=== PATIENT | female | born 1935 | race Caucasian/White ===

== ENCOUNTER 2019-10-15 13:54 | Emergency (ER) | payer MEDICARE, OTHER ==
[~2019-10-15] VITALS: Ht 160 cm; Wt 86.2 kg
--- NOTE | 2019-10-15 14:43 | NUR ---
DR CARRERA AT BEDSIDE FOR EVAL.
--- NOTE | 2019-10-15 14:43 | NUR ---
HOME NUMBER,[phone] CALLED HOPING TO GET A HOLD OF CAREGIVER FOR MORE INFO,MESSAGE LEFT
[2019-10-15 15:00] LABS: BASOPHILS % (AUTO) 0.3 % (0.0-2.0); EOSINOPHILS % (AUTO) 0.5 % (0.0-6.0); HEMATOCRIT 42 % (33-45); HEMOGLOBIN 13.9 g/dL (11.5-14.8); LYMPHOCYTES # (AUTO) 0.9 /CMM (0.8-4.8); LYMPHOCYTES % (AUTO) 7.9 % (20.0-44.0); MEAN CORPUSCULAR HGB CONC 33 g/dl (31.0-36.0); MEAN CORPUSCULAR VOLUME 95 fL (82-100); MONOCYTES # (AUTO) 0.8 /CMM (0.1-1.30); MONOCYTES % (AUTO) 7.4 % (2.0-12.0); NEUTROPHILS # (AUTO) 9.2 /CMM (1.8-8.9); NEUTROPHILS % (AUTO) 83.9 % (43.0-81.0); PLATELET COUNT (AUTO) 231 /CMM (150-450); RED BLOOD CELL COUNT(AUTO) 4.44 MIL/uL (4.0-5.2)
[2019-10-15 15:13] LABS: ALANINE AMINOTRANSFERASE 14 U/L (12-78); ALBUMIN 3.7 g/dL (3.4-5.0); ALKALINE PHOSPHATASE 56 U/L (46-116); ASPARTATE AMINOTRANSFERASE 18 U/L (15-37); BILIRUBIN,DIRECT 0.1 mg/dL (0.0-0.2); BILIRUBIN,TOTAL 0.4 mg/dL (0.2-1.0); CARBON DIOXIDE 27 mmol/L (21-32); CHLORIDE 106 mmol/L (98-107); CREATININE 0.8 mg/dL (0.6-1.3); GLUCOSE 108 mg/dL (74-106); LIPASE 186 U/L (73-393); POTASSIUM 4.2 mmol/L (3.5-5.1); SODIUM SERUM 141 mmol/L (136-145); TOTAL PROTEIN, SERUM 6.9 g/dL (6.4-8.2); UREA NITROGEN, BLOOD 24 mg/dL (7-18)
[2019-10-15] MEDS ORDERED: IV NS 0.9% 250 ML IV ONE (15:15)
[2019-10-15] MEDS ORDERED: CT SWABBABLE VALVE TRANS SET 1 EA INFUS.SET MC ONE (15:15)
[2019-10-15] MEDS ORDERED: IOHEXOL-300 100 ML VIAL IV ONE (15:15)
--- NOTE | 2019-10-15 15:21 | NUR ---
PT TO RADIOLOGY FOR HEAD AND ABDOMINAL CT SCAN VIA [facility].
[2019-10-15] MEDS ORDERED: DOCU250C14 PO (16:12)
[2019-10-15] MEDS ORDERED: ROSU10TA2 PO (16:12)
[2019-10-15] MEDS ORDERED: DONE10TA44 PO (16:12)
[2019-10-15] MEDS ORDERED: VITA400C19 PO (16:12)
[2019-10-15] MEDS ORDERED: ASPI-1169 PO (16:12)
[2019-10-15] MEDS ORDERED: OMEG-167 PO (16:12)
[2019-10-15] MEDS ORDERED: LOSA50TA39 PO (16:12)
[2019-10-15] MEDS ORDERED: NAPR220C15 PO (16:12)
[2019-10-15] MEDS ORDERED: ESCI10TA PO (16:12)
[2019-10-15] MEDS ORDERED: ASCO-352 PO (16:12)
--- NOTE | 2019-10-15 17:36 | NUR ---
Patient discharged to home in stable condition. Written and verbal after care instructions given. Patient verbalizes understanding of instruction.IV removed. Catheter intact and site benign. Pressure and 4x4 applied to site. No bleeding noted.
[2019-10-15 17:37] VITALS: BP 112/69
== END 2019-10-15 17:37 | disposition home or self-care (01) ==
LOC: ER 13:58
DX: R11.2 Nausea with vomiting, unspecified (principal); R42 Dizziness and giddiness; I10 Essential (primary) hypertension; M19.90 Unspecified osteoarthritis, unspecified site; Z79.899 Other long term (current) drug therapy; Z79.82 Long term (current) use of aspirin
CPT/HCPCS: 36415; 70450; 71045; 74177; 80048; 80076; 83690; 84484; 85025; 85730; 93005; 99285; J7050; Q9967

== ENCOUNTER 2019-10-18 14:58 | Emergency (ER) | payer OTHER ==
[~2019-10-18] VITALS: Ht 160 cm; Wt 86.6 kg
[~2019-10-18 14:58] MED LIST: ASCO-352 PO; ASPI-1169 PO; DOCU250C14 PO; DONE10TA44 PO; ESCI10TA PO; LOSA50TA39 PO; NAPR220C15 PO; OMEG-167 PO; ROSU10TA2 PO; VITA400C19 PO
--- NOTE | 2019-10-18 15:00 | NUR ---
PT BIBRA FROM HOME C/O GEN WEAKNESS FOR 3 DAYS, PT IS AAOX3, NOT IN RESPIRATORY DISTRESS, HOOKED TO MONITOR, KEPT RESTED AND COMFORTABLE, WILL CONTINUE TO MONITOR.
--- NOTE | 2019-10-18 15:05 | NUR ---
SEEN AND EXAMINED BY .
[2019-10-18] MEDS ORDERED: MULT1TAB73 PO (15:06)
[2019-10-18] MEDS ORDERED: DOCU250C88 PO (15:06)
--- NOTE | 2019-10-18 15:15 | NUR ---
ER PHLEB AT BEDSIDE FOR BLOOD DRAW.
[2019-10-18 15:17] LABS: BASOPHILS # (AUTO) 0.1 /CMM (0.0-0.2); BASOPHILS % (AUTO) 0.7 % (0.0-2.0); EOSINOPHILS % (AUTO) 1.7 % (0.0-6.0); HEMATOCRIT 41 % (33-45); LYMPHOCYTES # (AUTO) 2.9 /CMM (0.8-4.8); MEAN CORPUSCULAR HGB CONC 34 g/dl (31.0-36.0); MEAN CORPUSCULAR VOLUME 94 fL (82-100); NEUTROPHILS # (AUTO) 5.8 /CMM (1.8-8.9); NEUTROPHILS % (AUTO) 58.6 % (43.0-81.0); PLATELET COUNT (AUTO) 256 /CMM (150-450); WHITE BLOOD COUNT (AUTO) 9.9 K/uL (4.3-11.0)
[2019-10-18] MEDS ORDERED: ONDANSETRON HCL/PF 4 MG/2 ML VIAL ONE (15:27)
[2019-10-18] MEDS ORDERED: ONDANSETRON HCL/PF 4 MG/2 ML VIAL IVP ONE (15:30)
[2019-10-18 15:44] LABS: CALCIUM, SERUM 9.2 mg/dL (8.5-10.1); CARBON DIOXIDE 24 mmol/L (21-32); CHLORIDE 103 mmol/L (98-107); GLUCOSE 126 mg/dL (74-106); SODIUM SERUM 138 mmol/L (136-145); UREA NITROGEN, BLOOD 24 mg/dL (7-18)
[2019-10-18 15:45] LABS: APPEARANCE,URINE Slightly Cloudy (CLEAR); BILIRUBIN,URINE Negative (NEGATIVE); BLOOD, URINE Negative Ery/uL (NEGATIVE); COLOR,URINE Light yellow (YELLOW); KETONES,URINE Negative (NEGATIVE); LEUKOCYTE ESTERASE ,URINE Moderate (NEGATIVE); NITRITE, URINE Positive (NEGATIVE); PROTEIN,URINE Negative (NEGATIVE); UGLUCOSE Negative (NEGATIVE); UROBILINOGEN,URINE 0.2 EU/dL (0.2)
--- NOTE | 2019-10-18 15:45 | NUR ---
URINE COLLECTED AND SENT TO LAB.
[2019-10-18 15:51] LABS: ALANINE AMINOTRANSFERASE 17 U/L (12-78); ALBUMIN 3.8 g/dL (3.4-5.0); ALKALINE PHOSPHATASE 57 U/L (46-116); ASPARTATE AMINOTRANSFERASE 22 U/L (15-37); BILIRUBIN,DIRECT 0.1 mg/dL (0.0-0.2); BILIRUBIN,TOTAL 0.5 mg/dL (0.2-1.0); LIPASE 192 U/L (73-393); TOTAL PROTEIN, SERUM 7.2 g/dL (6.4-8.2)
[2019-10-18 16:11] LABS: BACTERIA,URINE Many /HPF (None Seen); RBC,URINE 0-2 /HPF (0-2); SQUAMOUS EPITHELIAL CELL,UR Few /HPF (None Seen)
[2019-10-18 16:12] LABS: MUCUS,URINE Few /LPF (None Seen)
[2019-10-18] MEDS ORDERED: CEFTRIAXONE 1GM BAG (ER ONLY) 50 ML IV ONE (16:56)
[2019-10-18] MEDS ORDERED: CEFTRIAXONE 1 G in IV D5W 50 ML IV ONE (17:00)
[2019-10-18] MEDS ORDERED: IV NS 0.9% 500 ML BAG IV ONE (17:00)
--- NOTE | 2019-10-18 17:06 | NUR ---
SPOKED TO PT RELATIVE SLOAN TO PICK HER UP, ETA 15MINS.
[2019-10-18 17:52] VITALS: BP 141/65
--- NOTE | 2019-10-18 17:52 | NUR ---
IV removed. Catheter intact and site benign. Pressure and 4x4 applied to site. No bleeding noted. Patient discharged to home in stable condition. Written and verbal after care instructions given. Patient verbalizes understanding of instruction.
== END 2019-10-18 17:52 | disposition home or self-care (01) ==
LOC: ER 15:07
DX: N30.00 Acute cystitis without hematuria (principal); E86.0 Dehydration; R00.1 Bradycardia, unspecified; I10 Essential (primary) hypertension; E78.5 Hyperlipidemia, unspecified; F03.90 Unspecified dementia, unspecified severity, without behavioral disturbance, psychotic disturbance, mood disturbance, and anxiety; Z79.82 Long term (current) use of aspirin; Z79.899 Other long term (current) drug therapy
CPT/HCPCS: 36415; 80048; 80076; 81001; 83690; 84484; 85025; 87077; 87086; 87186; 93005; 96365; 96375; 99284; J0696; J2405; J7040; 81000-TC; J7060

== ENCOUNTER 2019-10-26 11:09 | Inpatient (IN) | payer OTHER ==
[~2019-10-26] VITALS: Ht 157.5 cm; Wt 82.6 kg
[~2019-10-26 11:09] MED LIST changes: -ASCO-352 PO; +ASCO500T9 PO; +DOCU250C88 PO; +MULT1TAB73 PO
--- NOTE | 2019-10-26 11:14 | NUR ---
CHANEL 99 FROM HOME DIZZINESS, NEAR SYNCOPAL EPISODE, BG 84, TREATED IN SOH FOR UTI, STILL ON ANTIBIOTIC THERAPY, TO ER BED 9, HOOKED TO MONITOR, CHNAGED TO HOSP GOWN, WARM BLANKET PROVIDED, AWAITING MD ORTEZ.
--- NOTE | 2019-10-26 11:14 | NUR ---
DR THOMSON AT BEDSIDE
[2019-10-26 11:35] LABS: BASOPHILS # (AUTO) 0.1 /CMM (0.0-0.2); BASOPHILS % (AUTO) 0.9 % (0.0-2.0); EOSINOPHILS % (AUTO) 3.5 % (0.0-6.0); HEMATOCRIT 43 % (33-45); HEMOGLOBIN 14.3 g/dL (11.5-14.8); LYMPHOCYTES # (AUTO) 1.5 /CMM (0.8-4.8); LYMPHOCYTES % (AUTO) 19.8 % (20.0-44.0); MEAN CORPUSCULAR HGB CONC 33 g/dl (31.0-36.0); MEAN CORPUSCULAR VOLUME 95 fL (82-100); MONOCYTES # (AUTO) 0.7 /CMM (0.1-1.30); NEUTROPHILS # (AUTO) 4.8 /CMM (1.8-8.9); NEUTROPHILS % (AUTO) 65.8 % (43.0-81.0); PLATELET COUNT (AUTO) 209 /CMM (150-450); RED BLOOD CELL COUNT(AUTO) 4.56 MIL/uL (4.0-5.2); WHITE BLOOD COUNT (AUTO) 7.3 K/uL (4.3-11.0)
[2019-10-26 11:42] LABS: CALCIUM, SERUM 9.2 mg/dL (8.5-10.1); CARBON DIOXIDE 27 mmol/L (21-32); CHLORIDE 103 mmol/L (98-107); GLUCOSE 94 mg/dL (74-106); POTASSIUM 4.5 mmol/L (3.5-5.1); SODIUM SERUM 137 mmol/L (136-145); UREA NITROGEN, BLOOD 21 mg/dL (7-18)
--- NOTE | 2019-10-26 13:18 | NUR ---
URINE SAMPLE COLLECTED VIA STRAIGHT CATHETER, SAMPLE SENT TO LAB
[2019-10-26 13:26] LABS: APPEARANCE,URINE Clear (CLEAR); BILIRUBIN,URINE Negative (NEGATIVE); BLOOD, URINE Negative Ery/uL (NEGATIVE); COLOR,URINE Yellow (YELLOW); KETONES,URINE Trace (NEGATIVE); LEUKOCYTE ESTERASE ,URINE Negative (NEGATIVE); NITRITE, URINE Negative (NEGATIVE); PH,URINE 7.5 (5.0-8.0); PROTEIN,URINE Negative (NEGATIVE); UGLUCOSE Negative (NEGATIVE); UROBILINOGEN,URINE 0.2 EU/dL (0.2)
[2019-10-26 13:32] LABS: BACTERIA,URINE Few /HPF (None Seen); RBC,URINE 0-2 /HPF (0-2); WBC,URINE 0-2 /HPF (0-3)
[2019-10-26 13:33] LABS: SQUAMOUS EPITHELIAL CELL,UR Few /HPF (None Seen)
--- NOTE | 2019-10-26 13:44 | NUR ---
SUBMITTED MOVE SHEET AND CALLED FOR TELE BED.
[2019-10-26] MEDS ORDERED: MECLIZINE HCL 12.5 MG TABLET ONE (14:25)
[2019-10-26] MEDS ORDERED: MECLIZINE HCL 12.5 MG TABLET PO ONE (14:30)
[2019-10-26] MEDS ORDERED: IV NS 0.9% 1,000 ML BAG IV ONE (15:00)
[2019-10-26] MEDS ORDERED: ONDANSETRON HCL/PF 4 MG/2 ML VIAL IV ONE (15:00)
[2019-10-26] MEDS ORDERED: ONDANSETRON HCL/PF 4 MG/2 ML VIAL ONE (15:15)
[2019-10-26] MEDS ORDERED: ONDANSETRON HCL/PF 4 MG/2 ML VIAL IVP PRN (15:30)
[2019-10-26] MEDS ORDERED: MECLIZINE HCL 12.5 MG TABLET PO PRN (15:30)
[2019-10-26] MEDS ORDERED: Z GUARD REMEDY 2 OZ OINT TP PRN (15:30)
[2019-10-26] MEDS ORDERED: ACETAMINOPHEN 325 MG TABLET PO PRN (15:30)
--- NOTE | 2019-10-26 15:41 | NUR ---
REPORT GIVEN TO RA FERRER OF TELE UNIT
[2019-10-26] MEDS ORDERED: DIAZEPAM 5 MG TABLET PO PRN (15:44)
[2019-10-26 16:00] VITALS: BP 135/70
--- NOTE | 2019-10-26 16:00 | NUR ---
MS RN NOTES RECEIVED PATIENT FROM ER WITH ADMITTING DX OF BENIGN PAROXYSMAL POSITIONAL VERTIGO , AOX3 , NOT IN ACUTE DISTRESS ,DENIES SOB DISCOMFORT ,DIZZINESS AT THIS TIME , NO NAUSEA VOMITING AT THIS TIME , VS STABLE , AFEBRILE , SKIN ASSESSMENT DONE , SKIN IS INTACT , NO WOUNDS NOTED , BELONGING LIST CHECKED BY MICHELE WARE , IV OR R HAND # 20 PATENT AND INTACT , ALL NEEDS ATTENDED , BED ON LOW AND LOCKED POSITION , SIDE RAILS X2 CALL LIGHT WITHIN REACH , HOB 35 , ALARMS MADE AUDIBLE , WILL CONTINUE TO MONITOR ADMISSION ORDERS CARRIED OUT .
[2019-10-26] MEDS: IV NS 0.9% 1,000 ML IV PRN (16:08)
--- NOTE | 2019-10-26 18:59 | NUR ---
MS RN NOTES PATIENT STABLE AT THIS , AOX3 , NOT IN ACUTE DISTRESS ,DENIES SOB DISCOMFORT ,DIZZINESS AT THIS TIME , NO NAUSEA VOMITING AT THIS TIME , , IV OR R HAND # 20 PATENT AND INTACT WITH NS @75ML/HR INFUSING WELL , TECH AT BEDSIDE FOR ECHOCARDIOGRAM , ALL NEEDS ATTENDED , BED ON LOW AND LOCKED POSITION , SIDE RAILS X2 CALL LIGHT WITHIN REACH , HOB 35 , ALARMS MADE AUDIBLE , REPORT GIVEN TO LEON FOR CONTINUITY OF CARE
--- NOTE | 2019-10-26 19:33 | NUR ---
TELE/RN OPENING NOTES RECEIVED PATIENT A/O X3 ABLE TO STATE NAME. CURRENTLY WITH NO SIGN OF ANY DISTRESS.PATIENT IS ON ROOM AIR SATURATING AT 100% WITH NO SIGN OF ANY SOB. PATIENT HAS IV ACCESS ON THE LT HAND #20 WITH NS RUNNING AT 75CC/HR. LUNGS AUSCULTATED BREATH SOUNDS NORMAL. BOWEL SOUNDS ACTIVE. PATIENT DOES NOT COMPLAIN OF ANY NAUSEA OR VOMITING. ALL SAFETY PRECAUTIONS APPLIED. BED ALARM ON WITH SIDE RAILS UP X2 WILL CONTINUE TO MONITOR PATIENT THROUGHOUT SHIFT.
[2019-10-26 20:00] VITALS: BP 127/67
[2019-10-26] MEDS: ENOXAPARIN SODIUM 40 MG/0.4 ML DISP.SYRIN SQ SCH (20:55)
[2019-10-26] MEDS: ATORVASTATIN 40 MG TABLET PO SCH (21:25)
[2019-10-26] MEDS: DONEPEZIL 5 MG TABLET PO SCH (21:25)
--- NOTE | 2019-10-26 22:17 | NUR ---
Met with patient at bedside, she is alert and pleasant. States she lives alone in the second floor [facility] in [place]. She ambulates with a walker prior to admission. Has a caregiver that comes everyday from 10am-6:30pm. Has no homehealth reported. She plan top return home when discharge, her niece Melissa [phone]/ [phone] will provide ride. Addendum: 10/26/19 at 2218 by VINNIE SALGADO RN Amended: Links added.
[2019-10-27] VITALS: BP 111/55
[2019-10-27 04:00] VITALS: BP 126/57
[2019-10-27] MEDS: IV NS 0.9% 1,000 ML IV PRN ×2 (04:56→22:24)
[2019-10-27 06:59] LABS: BASOPHILS % (AUTO) 0.4 % (0.0-2.0); EOSINOPHILS % (AUTO) 2.2 % (0.0-6.0); HEMATOCRIT 40 % (33-45); HEMOGLOBIN 13.1 g/dL (11.5-14.8); LYMPHOCYTES # (AUTO) 1.7 /CMM (0.8-4.8); LYMPHOCYTES % (AUTO) 20.7 % (20.0-44.0); MEAN CORPUSCULAR HGB CONC 33 g/dl (31.0-36.0); MEAN CORPUSCULAR VOLUME 94 fL (82-100); MONOCYTES # (AUTO) 0.8 /CMM (0.1-1.30); MONOCYTES % (AUTO) 9.3 % (2.0-12.0); NEUTROPHILS # (AUTO) 5.6 /CMM (1.8-8.9); NEUTROPHILS % (AUTO) 67.4 % (43.0-81.0); PLATELET COUNT (AUTO) 235 /CMM (150-450); RED BLOOD CELL COUNT(AUTO) 4.22 MIL/uL (4.0-5.2); WHITE BLOOD COUNT (AUTO) 8.3 K/uL (4.3-11.0)
[2019-10-27 07:00] LABS: BILIRUBIN,TOTAL 0.5 mg/dL (0.2-1.0); CALCIUM, SERUM 8.4 mg/dL (8.5-10.1); CREATININE 0.9 mg/dL (0.6-1.3); MAGNESIUM 2.1 mg/dL (1.8-2.4); PHOSPHORUS 3.7 mg/dL (2.5-4.9); POTASSIUM 4.1 mmol/L (3.5-5.1); TOTAL PROTEIN, SERUM 6.1 g/dL (6.4-8.2)
[2019-10-27 07:03] LABS: THYROID STIMULATING HORMONE 3.599 uIU/mL (0.358-3.74)
--- NOTE | 2019-10-27 07:05 | NUR ---
MS/RN CLOSING NOTE PATIENT IN BED CURRENTLY WITH NO SIGN OF ANY DISTRESS.PATIENT IS ON ROOM AIR SATURATING AT 96% WITH NO SIGN OF ANY SOB. PATIENT HAS IV ACCESS ON THE LT HAND #20 WITH NS RUNNING AT 75CC/HR. PATIENT DOES NOT COMPLAIN OF ANY NAUSEA OR VOMITING. ALL SAFETY PRECAUTIONS APPLIED. BED ALARM ON WITH SIDE RAILS UP X2 ENDORSED PATIENT TO MORNING SHIFT NURSE FOR MARLI.
--- NOTE | 2019-10-27 07:26 | NUR ---
RN OPENING NOTES RN OPENING NOTES RECEIVED PATIENT RESTING IN BED, AWAKE, A/OX4, VERBALLY RESPONSIVE AND ABLE TO MAKE NEEDS KNOWN. DENIES ANY PAIN OR DISCOMFORT AT THE MOMENT. ON ROOM AIR, SATURATING WELL, NO SOB OR RESPIRATORY DISTRESS NOTED. IV ACCESS ON L HAND #20 RUNNING NS @75ML/HR NO SIGNS OF INFILTRATION NOTED. SAFETY MEASURES IN PLACE; CALL LIGHT WITHIN REACH, SIDE RAILS UP X2, HOB ELEVATED, BED LOCKED AND IN LOWEST POSITION. WILL CONT TO MONITOR PT CLOSELY.
[2019-10-27 08:00] VITALS: BP_SYST 126; BP_SYST 132; BP_DIAS 57; BP_DIAS 63
[2019-10-27] MEDS: LOSARTAN POTASSIUM 50 MG TABLET PO SCH (08:53)
[2019-10-27] MEDS: DOCUSATE SODIUM 250 MG CAPSULE PO SCH (08:53)
[2019-10-27] MEDS: ESCITALOPRAM OXALATE (10 MG) 10 MG TABLET PO SCH (08:53)
[2019-10-27] MEDS: ASPIRIN 81 MG TAB.CHEW PO SCH (08:54)
[2019-10-27] MEDS: ASCORBIC ACID 500 MG TABLET PO SCH (08:54)
[2019-10-27 12:00] VITALS: BP_SYST 108; BP_SYST 112; BP_SYST 114; BP_DIAS 48; BP_DIAS 50; BP_DIAS 52
--- NOTE | 2019-10-27 14:10 | NUR ---
RN NOTES PICKED UP BY RADIOLOGY FOR THE MRI OF BRAIN AND NECK.
[2019-10-27 16:00] VITALS: BP 114/52
[2019-10-27] MEDS ORDERED: GADOTERIDOL 279.3 MG/ML VIAL IV ONE (18:04)
--- NOTE | 2019-10-27 19:21 | NUR ---
RN CLOSING NOTES PATIENT IN BED, RESTING COMFORTABLY. DENIES ANY PAIN OR DISCOMFORT AT THE MOMENT. ON ROOM AIR, SATURATING WELL. IV ACCESS ON L HAND RUNNING NS @75ML/ HR, NO SIGNS OF INFILTRATION NOTED. ALL NEEDS MET. KEPT CLEAN AND DRY. SAFETY MEASURES APPLIED, CALL LIGHT WITHIN REACHED. ENDORSED TO PM RN FOR MARLI.
[2019-10-27 20:00] VITALS: BP 112/46
[2019-10-27] MEDS: DONEPEZIL 5 MG TABLET PO SCH (22:13)
[2019-10-27] MEDS: ATORVASTATIN 40 MG TABLET PO SCH (22:13)
[2019-10-27] MEDS: ENOXAPARIN SODIUM 40 MG/0.4 ML DISP.SYRIN SQ SCH (22:14)
--- NOTE | 2019-10-28 | NUR ---
ANEL/RN PATIENT IS SLEEPING AT THIS TIME, APPEAR COMFORTABLE, NO SIGNS OF DISTRESS NOTED, CALL LIGHT IN REACH, WILL CONTINUE TO MONITOR.
[2019-10-28 04:00] VITALS: BP 137/60
--- NOTE | 2019-10-28 06:34 | NUR ---
ANEL/RN PATIENT IS SLEEPING AT THIS TIME, APPEAR COMFORTABLE, NO SIGNS OF DISTRESS NOTED, CALL LIGHT IN REACH, ALL NEEDS ATTENDED AT THIS TIME, WILL CONTINUE TO MONITOR.
[2019-10-28 06:57] LABS: BASOPHILS # (AUTO) 0.1 /CMM (0.0-0.2); BASOPHILS % (AUTO) 0.6 % (0.0-2.0); EOSINOPHILS % (AUTO) 4.2 % (0.0-6.0); HEMATOCRIT 40 % (33-45); HEMOGLOBIN 13.3 g/dL (11.5-14.8); LYMPHOCYTES # (AUTO) 2.1 /CMM (0.8-4.8); LYMPHOCYTES % (AUTO) 23.3 % (20.0-44.0); MEAN CORPUSCULAR HGB CONC 33 g/dl (31.0-36.0); MEAN CORPUSCULAR VOLUME 94 fL (82-100); MONOCYTES # (AUTO) 0.8 /CMM (0.1-1.30); MONOCYTES % (AUTO) 8.6 % (2.0-12.0); NEUTROPHILS # (AUTO) 5.8 /CMM (1.8-8.9); NEUTROPHILS % (AUTO) 63.3 % (43.0-81.0); PLATELET COUNT (AUTO) 237 /CMM (150-450); RED BLOOD CELL COUNT(AUTO) 4.28 MIL/uL (4.0-5.2); WHITE BLOOD COUNT (AUTO) 9.1 K/uL (4.3-11.0)
[2019-10-28 07:14] LABS: CALCIUM, SERUM 8.4 mg/dL (8.5-10.1); PHOSPHORUS 2.9 mg/dL (2.5-4.9)
[2019-10-28 08:00] VITALS: BP 127/63
--- NOTE | 2019-10-28 09:00 | NUR ---
Pt A/OX4, VERBALLY RESPONSIVE AND ABLE TO MAKE NEEDS KNOWN. Pt DENIED ANY PAIN OR DISCOMFORT AT THIS TIME. ON ROOM AIR, SATURATING WELL, NO SOB OR RESPIRATORY DISTRESS NOTED. IV ACCESS ON L HAND #20 RUNNING NS @75ML/HR NO SIGNS OF INFILTRATION NOTED. SAFETY MEASURES IN PLACE; CALL LIGHT WITHIN REACH, SIDE RAILS UP X2, HOB ELEVATED, BED LOCKED AND IN LOWEST POSITION. ALL SAFETY PRECAUTIONS IN PLACE. MONITORING CONTINUED.
[2019-10-28] MEDS: ASCORBIC ACID 500 MG TABLET PO SCH (10:57)
[2019-10-28] MEDS: ESCITALOPRAM OXALATE (10 MG) 10 MG TABLET PO SCH (10:57)
[2019-10-28] MEDS: LOSARTAN POTASSIUM 50 MG TABLET PO SCH (10:57)
[2019-10-28] MEDS: DOCUSATE SODIUM 250 MG CAPSULE PO SCH (10:57)
[2019-10-28] MEDS: ASPIRIN 81 MG TAB.CHEW PO SCH (10:57)
[2019-10-28 16:00] VITALS: BP 118/58
[2019-10-28 16:04] VITALS: BP 118/58
[2019-10-28 20:00] VITALS: BP 115/43
[2019-10-28] MEDS: ENOXAPARIN SODIUM 40 MG/0.4 ML DISP.SYRIN SQ SCH (21:01)
[2019-10-28] MEDS: DONEPEZIL 5 MG TABLET PO SCH (21:14)
[2019-10-28] MEDS: ATORVASTATIN 40 MG TABLET PO SCH (21:14)
[2019-10-29 04:00] VITALS: BP 129/54
[2019-10-29] MEDS: IV NS 0.9% 1,000 ML IV PRN (05:20)
[2019-10-29 06:24] VITALS: BP 129/84
[2019-10-29 06:47] LABS: BASOPHILS # (AUTO) 0.1 /CMM (0.0-0.2); BASOPHILS % (AUTO) 0.6 % (0.0-2.0); EOSINOPHILS % (AUTO) 4.1 % (0.0-6.0); HEMATOCRIT 39 % (33-45); HEMOGLOBIN 13.1 g/dL (11.5-14.8); LYMPHOCYTES # (AUTO) 2.1 /CMM (0.8-4.8); LYMPHOCYTES % (AUTO) 23.8 % (20.0-44.0); MEAN CORPUSCULAR HGB CONC 34 g/dl (31.0-36.0); MEAN CORPUSCULAR VOLUME 94 fL (82-100); MONOCYTES # (AUTO) 0.9 /CMM (0.1-1.30); MONOCYTES % (AUTO) 9.9 % (2.0-12.0); NEUTROPHILS # (AUTO) 5.5 /CMM (1.8-8.9); NEUTROPHILS % (AUTO) 61.6 % (43.0-81.0); PLATELET COUNT (AUTO) 234 /CMM (150-450); RED BLOOD CELL COUNT(AUTO) 4.15 MIL/uL (4.0-5.2); WHITE BLOOD COUNT (AUTO) 8.9 K/uL (4.3-11.0)
[2019-10-29 06:58] LABS: ALBUMIN 2.6 g/dL (3.4-5.0); BILIRUBIN,TOTAL 0.4 mg/dL (0.2-1.0); CALCIUM, SERUM 8.3 mg/dL (8.5-10.1); CREATININE 0.8 mg/dL (0.6-1.3); MAGNESIUM 1.8 mg/dL (1.8-2.4); PHOSPHORUS 3.3 mg/dL (2.5-4.9); POTASSIUM 3.8 mmol/L (3.5-5.1); TOTAL PROTEIN, SERUM 5.7 g/dL (6.4-8.2)
--- NOTE | 2019-10-29 07:00 | NUR ---
MS RN Notes Received patient in bed stable condition from engraving plate maker. Alert and oriented x4. MS. Voids and has BM in diaper. Skin intact. Fall risk and bed alarm on. Patient on regular diet. IV LH 20g running NS at 75mL per hour. 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 Possible DC at 1300. Bed in lowest position, call light within reach, all measures taken to ensure client safety. Will continue to monitor.
--- NOTE | 2019-10-29 07:05 | NUR ---
RN CLOSING NOTES PATIENT IN BED, RESTING COMFORTABLY. DENIES ANY PAIN OR DISCOMFORT AT THE MOMENT. ON ROOM AIR, SATURATING WELL.NO DOUBLE VISION NOTED FOR ENTIRE SHIFT IV ACCESS ON L HAND RUNNING NS @75ML/ HR, NO SIGNS OF INFILTRATION NOTED. ALL NEEDS MET. KEPT CLEAN AND DRY. SAFETY MEASURES APPLIED, CALL LIGHT WITHIN REACHED. ENDORSED TO PM RN FOR MARLI.
[2019-10-29 08:00] VITALS: BP 137/72
[2019-10-29] MEDS: ASPIRIN 81 MG TAB.CHEW PO SCH (09:20)
[2019-10-29] MEDS: ASCORBIC ACID 500 MG TABLET PO SCH (09:20)
[2019-10-29 09:21] VITALS: BP 135/80
[2019-10-29] MEDS: DOCUSATE SODIUM 250 MG CAPSULE PO SCH (09:21)
[2019-10-29] MEDS: ESCITALOPRAM OXALATE (10 MG) 10 MG TABLET PO SCH (09:21)
[2019-10-29] MEDS: LOSARTAN POTASSIUM 50 MG TABLET PO SCH (09:21)
--- NOTE | 2019-10-29 13:00 | NUR ---
MS RN Notes Patient discharged to family member Melissa Coyle. Exit care and teaching provided to both Melissa and client. IV removed. ID band removed. Belongings returned. Vital signs stable on discharge, charted in exit care. Client able to ambulate short distances on a walker. Taken to car via wheel chair with Veda MAXWELL present for help.
== END 2019-10-29 14:10 | disposition home or self-care (01) | DRG 123 ==
LOC: ER 11:15 → TELE1 14:58 → MEDSG1 18:37
PROVIDERS: ADMIT Nurse Practitioner Acute Care; ATTEND Nurse Practitioner Acute Care
DX: H49.22 Sixth [abducent] nerve palsy, left eye (principal); N17.9 Acute kidney failure, unspecified; F03.90 Unspecified dementia, unspecified severity, without behavioral disturbance, psychotic disturbance, mood disturbance, and anxiety; I10 Essential (primary) hypertension; E78.5 Hyperlipidemia, unspecified; E83.51 Hypocalcemia; F32.9 Major depressive disorder, single episode, unspecified; F29 Unspecified psychosis not due to a substance or known physiological condition; Z87.440 Personal history of urinary (tract) infections; R55 Syncope and collapse; Z96.643 Presence of artificial hip joint, bilateral
CPT/HCPCS: 36415; 46600; 70450-TC; 70551-TC; 71045-TC; 80048-TC; 80053-TC; 80061-TC; 81000-TC; 83540-TC; 83735-TC; 84100-TC; 84443-TC; 84484-TC; 85025-TC; 85730-TC; 87081-TC; 93307-TC; 97530-TC; A9579; G0378; J1650; J2405; J7030; J8597